=== PATIENT | male | born 1940 | race Two or more races ===

== ENCOUNTER 2019-03-07 17:35 | Inpatient (IN) | payer OTHER ==
[~2019-03-07] VITALS: Ht 160 cm; Wt 78.3 kg
[~2019-03-07 17:35] MED LIST: FLUC100T4 PO; GLIP10TA13 PO; INSU100V11 SQ; LISI1TAB7 PO; METF500T16 PO; METO100T7 PO; NPH,100V5 SQ; POTA20TA4 PO; SIMV40TA3 PO
[2019-03-07] MEDS ORDERED: IV NORMAL SALINE 1000ML BAG 1,000 ML IV SCH (18:30)
--- NOTE | 2019-03-07 18:49 | PHYS DOC ---
Past Medical History Past Medical History: Diabetes-Type II, High Cholesterol, Hypertension Additional Past Medical Histor: BASAL GANGLIA BLEED Past Surgical History: Other Additional Past Surgical Histo: FINGER SX Alcohol Use: None Drug Use: None Adult General Chief Complaint Chief Complaint: Palpitations HPI HPI Patient is a 78-year-old male who presents from home with report of increasing weakness, confusion and just not doing well overall at home. Patient had a stroke the day before Thanksgiving this last year and daughter indicates that normally she is able to transfer patient from wheelchair to bed without difficulty but she states that now patient is requiring much more assistance. Patient does admit to feeling very weak. He denies any specific pain. He denies any headache, chest pain or shortness of breath. He also denies any abdominal pain. Family is not aware if patient has been running a fever or not.[] Review of Systems Review of Systems Constitutional: Denies fever or chills [] Respiratory: Denies cough or shortness of breath [] Cardiovascular: No additional information not addressed in HPI [] GI: Denies abdominal pain, nausea, vomiting or diarrhea [] Musculoskeletal: Denies back pain or joint pain [] Integument: Denies rash or skin lesions [] Neurologic: Denies headache, complains of worsening generalized weakness[] All other systems were reviewed and found to be within normal limits, except as documented in this note. Current Medications Current Medications Current Medications Medications (Trade) Dose Ordered Sig/Rachelle Start Time Stop Time Status Last Admin Dose Admin Sodium Chloride 1,000 ml @ 1,000 mls/hr Q1H 03/07/19 18:30 03/07/19 19:29 DC 03/07/19 19:13 1,000 MLS/HR Allergies Allergies Allergies Coded Allergies Type Severity Reaction Last Updated Verified No Known Drug Allergies 05/03/16 No Physical Exam Physical Exam Constitutional: Well developed, well nourished, no acute distress, non-toxic appearance. [] HENT: Normocephalic, atraumatic, bilateral external ears normal, oropharynx moist, no oral exudates, nose normal. [] Eyes: PERRLA, EOMI, conjunctiva normal, no discharge. [] Neck: Normal range of motion, no tenderness, supple. [] Cardiovascular: Regular rate and rhythm[] Lungs & Thorax: Bilateral breath sounds clear to auscultation [] Abdomen: Bowel sounds normal, soft, no tenderness. [] Skin: Warm, dry, no erythema, no rash. [] Extremities: No tenderness, no cyanosis, no clubbing, ROM intact, no edema. [] Neurologic: Awake and alert, no acute focal deficits noted. [] Current Patient Data Vital Signs Vital Signs Date Time Temp Pulse Resp B/P (MAP) Pulse Ox O2 Delivery O2 Flow Rate FiO2 03/07/19 17:52 98.4 97 14 125/71 (89) 97 Room Air 98.4 Lab Values Laboratory Tests Test 03/07/19 19:13 03/07/19 19:30 White Blood Count 9.5 x10^3/uL (4.0-11.0) Red Blood Count 5.00 x10^6/uL (4.30-5.70) Hemoglobin 13.3 g/dL (13.0-17.5) Hematocrit 40.1 % (39.0-53.0) Mean Corpuscular Volume 80 fL (79-100) Mean Corpuscular Hemoglobin 27 pg (25-35) Mean Corpuscular Hemoglobin Concent 33 g/dL (31-37) Red Cell Distribution Width 15.4 % (11.5-14.5) H Platelet Count 284 x10^3/uL (140-400) Neutrophils (%) (Auto) 62 % (31-73) Lymphocytes (%) (Auto) 26 % (24-48) Monocytes (%) (Auto) 9 % (0-9) Eosinophils (%) (Auto) 2 % (0-3) Basophils (%) (Auto) 1 % (0-3) Neutrophils # (Auto) 5.9 x10^3uL (1.8-7.7) Lymphocytes # (Auto) 2.5 x10^3/uL (1.0-4.8) Monocytes # (Auto) 0.9 x10^3/uL (0.0-1.1) Eosinophils # (Auto) 0.1 x10^3/uL (0.0-0.7) Basophils # (Auto) 0.1 x10^3/uL (0.0-0.2) Sodium Level 139 mmol/L (136-145) Potassium Level 3.7 mmol/L (3.5-5.1) Chloride Level 101 mmol/L (98-107) Carbon Dioxide Level 29 mmol/L (21-32) Anion Gap 9 (6-14) Blood Urea Nitrogen 9 mg/dL (8-26) Creatinine 0.6 mg/dL (0.7-1.3) L Estimated GFR (Cockcroft-Gault) 131.0 BUN/Creatinine Ratio 15 (6-20) Glucose Level 165 mg/dL (70-99) H Calcium Level 9.1 mg/dL (8.5-10.1) Magnesium Level 1.9 mg/dL (1.8-2.4) Total Bilirubin 0.6 mg/dL (0.2-1.0) Aspartate Amino Transferase (AST) 18 U/L (15-37) Alanine Aminotransferase (ALT) 22 U/L (16-63) Alkaline Phosphatase 62 U/L (46-116) Troponin I Quantitative < 0.017 ng/mL (0.000-0.055) Total Protein 7.2 g/dL (6.4-8.2) Albumin 2.9 g/dL (3.4-5.0) L Albumin/Globulin Ratio 0.7 (1.0-1.7) L Lipase 72 U/L (73-393) L Thyroid Stimulating Hormone (TSH) 1.293 uIU/mL (0.358-3.74) Urine Collection Type Unknown Urine Color Yellow Urine Clarity Clear Urine pH 7.0 Urine Specific [place] 1.010 Urine Protein Negative mg/dL (NEG-TRACE) Urine Glucose (UA) Negative mg/dL (NEG) Urine Ketones (Stick) Negative mg/dL (NEG) Urine Blood Negative (NEG) Urine Nitrite Negative (NEG) Urine Bilirubin Negative (NEG) Urine Urobilinogen Dipstick 0.2 mg/dL (0.2 mg/dL) Urine Leukocyte Esterase Small (NEG) Urine RBC 0 /HPF (0-2) Urine WBC 5-10 /HPF (0-4) Urine Squamous Epithelial Cells Few /LPF Urine Bacteria 0 /HPF (0-FEW) Laboratory Tests 03/07/19 19:13 Laboratory Tests 03/07/19 19:13 EKG EKG [] Interpretation Time: EKG demonstrates sinus rhythm with rate of 98. Radiology/Procedures Radiology/Procedures [] Impressions: PROCEDURE: CT HEAD WO CONTRAST CT head without contrast dated 03/07/2019. CLINICAL INDICATION: Weakness. Possible stroke. TECHNIQUE: Contiguous axial imaging of the head was performed from skull base to vertex. No contrast administered. One or more of the following individualized dose reduction techniques were utilized for this examination: 1. Automated exposure control 2. Adjustment of the mA and/or kV according to patient size 3. Use of iterative reconstruction technique FINDINGS: Ventricles and sulci are mildly prominent for age. No midline shift or mass effect. Moderate patchy low density in the deep/subcortical periventricular white matter. No hemorrhage or extra-axial collection. Posterior fossa and brainstem unremarkable. Mild mucosal thickening of the bilateral ethmoid air cells and left maxillary sinus. There is a small mucous retention cyst of the left maxillary sinus. Mastoid air cells are clear. No apparent calvarial abnormality. IMPRESSION: 1. No evidence of acute intracranial hemorrhage or mass. 2. Moderate chronic small vessel ischemic changes and atrophy. 3. Mild sinus disease. Electronically signed by: Mich Fulton MD (03/07/2019 7:34 PM) [facility] Course & Med Decision Making Course & Med Decision Making Pertinent Labs and Imaging studies reviewed. (See chart for details) [] Dragon Disclaimer Dragon Disclaimer This electronic medical record was generated, in whole or in part, using a voice recognition dictation system. Departure Departure Impression: Primary Impression: Confusion Additional Impression: Generalized weakness Disposition: 09 ADMITTED INPATIENT Admitting Physician: Lucy Bradshaw Condition: GOOD Referrals: LUCY BRADSHAW MD (PCP) Problem Qualifiers JACKI VILLARREAL Jr. DO March 07, 2019 18:49
[2019-03-07 19:21] LABS: BASO # 0.1 x10^3/uL (0.0-0.2); BASO % 1 % (0-3); EOS # 0.1 x10^3/uL (0.0-0.7); EOS % 2 % (0-3); HEMATOCRIT 40.1 % (39.0-53.0); HEMOGLOBIN 13.3 g/dL (13.0-17.5); LYMPH # 2.5 x10^3/uL (1.0-4.8); LYMPH % 26 % (24-48); MEAN CORPUSCULAR HEMOGLOBIN 27 pg (25-35); MEAN CORPUSCULAR HGB CONC 33 g/dL (31-37); MEAN CORPUSCULAR VOLUME 80 fL (79-100); MONO # 0.9 x10^3/uL (0.0-1.1); MONO % 9 % (0-9); NEUT # 5.9 x10^3uL (1.8-7.7); NEUT % 62 % (31-73); PLATELET COUNT 284 x10^3/uL (140-400); RED CELL DISTRIBUTION WIDTH 15.4 % (11.5-14.5); WHITE BLOOD COUNT 9.5 x10^3/uL (4.0-11.0)
[2019-03-07 19:33] LABS: CALCIUM 9.1 mg/dL (8.5-10.1); CREATININE 0.6 mg/dL (0.7-1.3); POTASSIUM 3.7 mmol/L (3.5-5.1)
--- NOTE | 2019-03-07 19:37 | RAD ---
CT head without contrast dated 03/07/2019. CLINICAL INDICATION: Weakness. Possible stroke. TECHNIQUE: Contiguous axial imaging of the head was performed from skull base to vertex. No contrast administered. One or more of the following individualized dose reduction techniques were utilized for this examination: 1. Automated exposure control 2. Adjustment of the mA and/or kV according to patient size 3. Use of iterative reconstruction technique FINDINGS: Ventricles and sulci are mildly prominent for age. No midline shift or mass effect. Moderate patchy low density in the deep/subcortical periventricular white matter. No hemorrhage or extra-axial collection. Posterior fossa and brainstem unremarkable. Mild mucosal thickening of the bilateral ethmoid air cells and left maxillary sinus. There is a small mucous retention cyst of the left maxillary sinus. Mastoid air cells are clear. No apparent calvarial abnormality. IMPRESSION: 1. No evidence of acute intracranial hemorrhage or mass. 2. Moderate chronic small vessel ischemic changes and atrophy. 3. Mild sinus disease. Electronically signed by: Mich Fulton MD (03/07/2019 7:34 PM) [facility]
[2019-03-07 19:40] LABS: ALBUMIN 2.9 g/dL (3.4-5.0); ALBUMIN/GLOBULIN RATIO 0.7 (1.0-1.7); MAGNESIUM 1.9 mg/dL (1.8-2.4); TOTAL BILIRUBIN 0.6 mg/dL (0.2-1.0); TOTAL PROTEIN 7.2 g/dL (6.4-8.2)
[2019-03-07 19:40] LABS: BILIRUBIN,URINE NEGATIVE (NEG); CLARITY,URINE CLEAR; COLOR,URINE YELLOW; NITRITE,URINE NEGATIVE (NEG); PROTEIN,URINE NEGATIVE (NEG-TRACE); UROBILINOGEN,URINE 0.2 mg/dL (0.2 mg/dL)
--- NOTE | 2019-03-07 19:41 | RAD ---
Single view chest dated 03/07/2019. Comparison made to 05/10/2018. Clinical indication: Weakness. FINDINGS: Single upright lateral exam performed. Heart and mediastinal contours are stable. Lung volumes are low, limiting evaluation. No consolidation or pleural effusion. No pneumothorax. IMPRESSION: Limited exam. No apparent acute abnormality. Electronically signed by: Mich Fulton MD (03/07/2019 7:38 PM) [facility]
[2019-03-07 19:49] LABS: RBC,URINE 0 /HPF (0-2); SQUAMOUS EPITHELIAL CELL,UR FEW /LPF
[2019-03-07 19:50] LABS: BACTERIA,URINE 0 /HPF (0-FEW)
[2019-03-07] MEDS: IV NORMAL SALINE 1000ML BAG 1,000 ML IV SCH (20:22)
[2019-03-07 22:40] VITALS: BP 126/73
[2019-03-07 23:00] VITALS: BP 136/97
[2019-03-08] MEDS ORDERED: ESCITALOPRAM OX10 MG PO (00:05)
[2019-03-08] MEDS ORDERED: LEVO25TA4 PO (00:05)
[2019-03-08] MEDS ORDERED: DOXA4TAB3 PO (00:05)
[2019-03-08] MEDS ORDERED: ATOR20TA58 PO (00:05)
[2019-03-08 03:00] VITALS: BP 108/66
[2019-03-08] MEDS ORDERED: NPH,100V SQ (04:01)
[2019-03-08 04:02] LABS: BASO # 0.1 x10^3/uL (0.0-0.2); BASO % 1 % (0-3); EOS # 0.2 x10^3/uL (0.0-0.7); EOS % 3 % (0-3); HEMATOCRIT 39.2 % (39.0-53.0); HEMOGLOBIN 12.8 g/dL (13.0-17.5); LYMPH # 2.6 x10^3/uL (1.0-4.8); LYMPH % 31 % (24-48); MEAN CORPUSCULAR HEMOGLOBIN 26 pg (25-35); MEAN CORPUSCULAR HGB CONC 33 g/dL (31-37); MEAN CORPUSCULAR VOLUME 81 fL (79-100); MONO # 0.7 x10^3/uL (0.0-1.1); MONO % 8 % (0-9); NEUT % 58 % (31-73); PLATELET COUNT 282 x10^3/uL (140-400); RED BLOOD COUNT 4.86 x10^6/uL (4.30-5.70); RED CELL DISTRIBUTION WIDTH 15.2 % (11.5-14.5); WHITE BLOOD COUNT 8.7 x10^3/uL (4.0-11.0)
[2019-03-08 04:23] LABS: ALBUMIN 2.7 g/dL (3.4-5.0); ALBUMIN/GLOBULIN RATIO 0.7 (1.0-1.7); CALCIUM 8.9 mg/dL (8.5-10.1); CREATININE 0.5 mg/dL (0.7-1.3); GFR 161.7; POTASSIUM 3.6 mmol/L (3.5-5.1); TOTAL BILIRUBIN 0.6 mg/dL (0.2-1.0); TOTAL PROTEIN 6.8 g/dL (6.4-8.2)
[2019-03-08 07:15] VITALS: BP 141/84
--- NOTE | 2019-03-08 07:25 | EKG ---
[facility] [address] [place] [address] Test Date: 2019-03-07 Test Time: 17:53:54 Pat Name: GARCIA SERRANO Department: Room: Gender: M Machine Whitener: : 1940 Requested By: JACKI VILLARREAL Order Number: [id number] Reading MD: Measurements Intervals [place] Rate: 98 P: 0 HI: 222 QRS: 39 QRSD: 76 T: 50 QT: 332 QTc: 426 Interpretive Statements SINUS RHYTHM PROLONGED HI INTERVAL QRS(T) CONTOUR ABNORMALITY CONSIDER INFERIOR MYOCARDIAL DAMAGE ABNORMAL ECG RI6.01 No previous ECG available for comparison
[2019-03-08] MEDS ORDERED: ACETAMINOPHEN 325 MG TABLET. PO PRN (10:15)
--- NOTE | 2019-03-08 10:20 | NUR ---
Per pt, pt reports feeling weaker than baseline. Pt states he uses roller walker and wheelchair for mobility. Please order PT/OT eval and treat when pt deemed appropriate to further assess functional mobility. Thank you. Addendum: 03/08/19 at 1020 by PHILIP BERRY, PT PT Amended: Links added.
[2019-03-08] MEDS: LEVOTHYROXINE 25 MCG TABLET. PO SCH (10:58)
[2019-03-08] MEDS: CITALOPRAM 20 MG TABLET. PO SCH (10:58)
[2019-03-08] MEDS: IV NORMAL SALINE 1000ML BAG 1,000 ML IV SCH ×2 (10:58→16:22)
[2019-03-08] MEDS ORDERED: INSULIN GLARGINE 300 UNITS/3 ML INSULN.PEN. SQ SCH (11:00)
[2019-03-08 11:09] VITALS: BP 159/83
--- NOTE | 2019-03-08 11:15 | NUR ---
Wound care: Patient seen per wound care consult. There are no open wounds at this time. The left shoulder and the left knee abrasions are both scabbed over. The left dorsal toe is also closed, scab removed when sock taken off, the area is closed. Skin prep applied to scabbed areas for protection. Patient brief changed and coccyx/bilateral buttocks area is reddened with some incontinence associated dermatitis but nothing open at this time. Calazime cream applied. Patient repositioned with minimal assistance. Call light in reach and bed lowered. Spoke with RN regarding POC. Wound care will sign off at this time. Please re consult regarding any changes per wound care.
--- NOTE | 2019-03-08 11:20 | PDOC ---
Provider Note Provider Note Patient seen. History and Physical dictated. See dictation#[id number] LUCY BRADSHAW MD March 08, 2019 11:19
--- NOTE | 2019-03-08 11:35 | HP ---
ADMIT DATE: 03/07/2019 HISTORY OF PRESENT ILLNESS: This 78-year-old male who has a history of uncontrolled diabetes mellitus and dementia, who was recently admitted to [facility] [place] for acute cerebrovascular accident. At that time, he had a PEG tube placed, but after that he started eating. However, for last 2 days, the patient's daughter noted that he has become extremely weak and he cannot even support himself. He cannot sit up in the chair and has weakness of the lower extremities, so she brought him to the office yesterday. I noticed some cardiac arrhythmia on auscultation but EKG did not show any arrhythmia. Because of the change in mental status and also increasing weakness with possibility of another stroke and other issues, the patient was sent to the Emergency Room at [facility]. I had asked the family to go by ambulance, but he came by local transport. In the Emergency Room, The patient's labs showed WBC count of 9.5, hemoglobin 13.3. Sodium 139, potassium 3.7, BUN 9, creatinine 0.6, glucose 165. Urinalysis negative. CT scan of head showed no acute intracranial hemorrhage or mass, moderate chronic small vessel ischemic changes and atrophy and mild sinus disease. A chest x-ray was unremarkable. Urinalysis was negative except for small leukocyte esterase. Because of the change in mental status and increasing weakness, the patient was admitted for further evaluation and management. REVIEW OF SYSTEMS: At present time, the patient is sleeping and I am unable to wake him up and unable to do systems review. Yesterday when he was awake and talking to me, he denied any problems, but he is very confused and unable to get any significant information from him yesterday also. Other systems were reviewed and negative yesterday. PAST MEDICAL HISTORY: Diabetic neuropathy with hyperglycemia, blood sugars have been extremely high for a long, long time, but the last hemoglobin A1c was 7.9 because now he cannot get out of bed to go and find the food that he used to eat continuously. He also has a history of glaucoma, hypertension, internal hemorrhoids, hyperlipidemia, CVA, noncompliance, cerebrovascular disease. PAST SURGICAL HISTORY: The patient had a PEG tube placed recently. SOCIAL HISTORY: No history of smoking, alcoholism or drug abuse. The patient quit drinking in 1983. He lives with the family and has good support. FAMILY HISTORY: Brother has diabetes. Mother has diabetes. ALLERGIES: None known any. MEDICATIONS: Reviewed and reconciled. PHYSICAL EXAMINATION: VITAL SIGNS: Temperature 97.7, pulse 97 per minute, respirations 14 per minute, blood pressure 125/71 mmHg. GENERAL: The patient is sleeping and not in acute distress. EYES: Unable to examine. HEENT: Unable to examine. NECK: Supple. JVP normal. No thyromegaly. LUNGS: Decreased breath sounds at bases. CARDIOVASCULAR: S1, S2 regular. ABDOMEN: Soft, nontender. The patient has a PEG tube in place. Bowel sounds present. No drainage around the PEG tube per staff today. Bowel sounds present. EXTREMITIES: No edema. CENTRAL NERVOUS SYSTEM: Sleeping. Yesterday the exam showed that he was extremely weak. LABORATORY FINDINGS: As noted earlier. IMPRESSION: 1. Acute metabolic encephalopathy. 2. Sudden increase in weakness, possible new CVA; however, CT head is negative. 3. Diabetes mellitus type 2 with neuropathy. 4. Dysphagia with PEG tube, although the patient has been eating well recently. 5. Dementia with behavioral disturbances. 6. Recent cerebrovascular accident. PLAN: Consult Dr. Walker for Neurology evaluation and management, Dr. Zambrano for rehab evaluation and management. I will adjust the insulin. I ordered insulin earlier, but because the patient was n.p.o. I will hold it and then use sliding scale for today. For details, please refer to the orders. Prognosis of this patient is poor due to his multiple medical problems. LUCY BRADSHAW MD DR: MIREYA/ozzie JOB#: [id number] / [id number]
--- NOTE | 2019-03-08 12:26 | NUR ---
THE PT. PRESENTS VERY CONFUSED, AND UPON TRYING TO MEASURE THE PT. HE BECAME COMBATIVE AND AGRESSIVE. THE PT. IS VERY CONFUSED AND WOULD NOT ALLOW THE EEG TAKE OUT WAITRESS
--- NOTE | 2019-03-08 14:05 | PDOC2 ---
NEUROLOGY CONSULT Date of Admission Date of Admission DATE: 03/08/19 TIME: 13:46 Reason for Consult Reason for Consult: IMPRESSION: Confusion. Metabolic encephalopathy. Generalized weakness. UTI. Dm. HTN. HLD. Obesity. Old BG hemorrhage? RECOMMENDATIONS/PLAN: EEG. Lab: see orders. ASA 81 mg daily. Continue Statin HS. Treat medical diseases. MRI if has focalized motor deficits. OT/PT. HISTORY OF THE PRESENT ILLNESS: This is a 78-year-old male patient who was brought to the ER of [facility] with report of increased weakness, confusion and just not doing well overall at home for over 2 days. Patient had a stroke the day before Thanksgiving this last year and daughter indicates that normally she is able to transfer patient from wheelchair to bed without difficulty but she states that now patient is requiring much more assistance. Patient does admit to feeling very weak in all extremities. PAST MEDICAL HISTORY: Diabetic neuropathy with hyperglycemia, last hemoglobin A1c was 7.9. Glaucoma, hypertension, internal hemorrhoids, hyperlipidemia, CVA, noncompliance, cerebrovascular disease. PAST SURGICAL HISTORY: PEG tube placed recently. SOCIAL HISTORY: Denied current smoking, alcoholism or drug abuse. The patient quit drinking in 1983. He lives with the family and has good support. FAMILY HISTORY: Brother has diabetes. Mother has diabetes. ALLERGY: NKDA MEDICATIONS: REVIEW OF SYSTEMS: Constitutional: Obese. Head: No traumatic brain or head injury. Skin: No edema, or rash. Ear: No infection, tinnitus. Eyes: No vision loss or color blindness. Nose: No bleeding or purulent discharges. Hearing: Hearing decrease. Neck: No injury. Cardiac: HTN, HLD. Pulmonary: No COPD. GI: No GI ulcer, GI bleeding. Urinary/genital: UTI. Endocrinologic: Diabetes Mellitus, obesity. Skeletomuscular: Generalized weakness. Neurological: see HP. Psychiatric: Denies drug use/abuse. Otherwise, not [id number] review of systems. PHYSICAL EXAMINATION: General appearance is in subacute distress. HEENT: Normocephalic and nontraumatic. Eyes, nose, ears, and throat are unremarkable. Neck is supple. No lymphadenopathy. No crepitus. Cardiovascular: S1, S2, regular rate and rhythm. Pulmonary: Clear to auscultation bilaterally. Abdomen: Bowel sounds are positive. Extremities: No rash, lesions, or edema. No restriction of range of motion NEUROLOGICAL EXAMINATION: Sleepiness. Not oriented to time, place and person. PERRL. EOMI. CN: no focal findings. Muscle tone: within normal. Muscle strength: 4+ DTR: 1-2 Plantar reflex: Neutral response bilaterally Gait: not examined in bed. Sensory exam: no acute abnormal findings. Not able to access cerebellar signs due tyo not follow command. F-T-N test not performed. Current Medications Current Medications Current Medications Sodium Chloride 1,000 ml @ 1,000 mls/hr Q1H IV Last administered on 03/07/19at 19:13; Start 03/07/19 at 18:30; Stop 03/07/19 at 19:29; Status DC Sodium Chloride 1,000 ml @ 100 mls/hr Q10H IV Last administered on 03/08/19at 10:58; Start 03/07/19 at 20:22; Stop 03/08/19 at 20:21 Atorvastatin Calcium (Lipitor) 20 mg QHS PO ; Start 03/08/19 at 21:00 Doxazosin Mesylate (Cardura) 4 mg DAILYWSUP PO ; Start 03/08/19 at 17:00 Citalopram Hydrobromide (CeleXA) 20 mg DAILY PO Last administered on 03/08/19at 10:58; Start 03/08/19 at 11:00 Levothyroxine Sodium (Synthroid) 25 mcg DAILY06 PO Last administered on 03/08/19at 10:58; Start 03/08/19 at 10:30 Insulin Glargine (Lantus) 30 units DAILY SQ ; Start 03/08/19 at 11:00; Stop 03/08/19 at 11:20; Status DC Insulin Human Lispro (HumaLOG) 0-8 UNITS BIDBFRMEAL SQ ; Start 03/08/19 at 16:30 Acetaminophen (Tylenol) 650 mg PRN Q6HRS PRN PO MILD PAIN / TEMP; Start 03/08/19 at 10:15 Heparin Sodium (Porcine) (Heparin Sodium) 5,000 unit Q12HR SQ ; Start 03/08/19 at 21:00 Active Scripts Active Reported Humulin N (Nph, Human Insulin Isophane) 100 Unit/1 Ml Vial 45 Unit SQ DAILY Doxazosin Mesylate 4 Mg Tablet 4 Mg PO DAILY Escitalopram Oxalate 10 Mg Tablet 10 Mg PO DAILY Atorvastatin Calcium 20 Mg Tablet 20 Mg PO DAILY Levothyroxine Sodium 25 Mcg Tablet 25 Mcg PO DAILYAC Allergies Allergies: Allergies Coded Allergies Type Severity Reaction Last Updated Verified No Known Drug Allergies 05/03/16 No ROS Review of System The patient denies any associated fevers, chills, headache, ear pain, rhinorrhea, sore throat, stiff neck, productive cough, chest pain, shortness of breath, back or flank pain, abdominal pain, nausea, vomiting, diarrhea, constipation, dysuria, rash, numbness, weakness, tingling, incontinence, difficulty ambulating, or diaphoresis. Physical Exam Physical Exam General: Well developed, well nourished, no acute distress, well appearing HEENT: Pupils equally round and reactive to light, EOMI, no discharge, normal conjunctiva Neck: Supple, no nuchal rigidity, no JVD, trachea midline, no tenderness Cardiac: RRR, no murmurs, no gallops, no rubs Chest/Lungs: CTAB, no wheeze, no rhonchi, no crackles Abdomen: soft, non-distended, no guarding, no peritoneal signs, non-tender Back: No tenderness Extremities: no edema, pulses intact, non-tender,capillary refill <3 sec bilateral upper and lower extremities, Neuro: Alert and oriented x 4, no focal deficits, normal speech Vitals Vitals: Vital Signs Date Time Temp Pulse Resp B/P (MAP) Pulse Ox O2 Delivery O2 Flow Rate FiO2 03/08/19 11:09 97.5 68 20 159/83 (108) 94 Room Air 97.5 Labs Labs Laboratory Tests Test 03/07/19 19:13 03/07/19 19:30 03/07/19 21:52 03/08/19 03:20 White Blood Count 9.5 x10^3/uL (4.0-11.0) 8.7 x10^3/uL (4.0-11.0) Red Blood Count 5.00 x10^6/uL (4.30-5.70) 4.86 x10^6/uL (4.30-5.70) Hemoglobin 13.3 g/dL (13.0-17.5) 12.8 g/dL (13.0-17.5) Hematocrit 40.1 % (39.0-53.0) 39.2 % (39.0-53.0) Mean Corpuscular Volume 80 fL (79-100) 81 fL (79-100) Mean Corpuscular Hemoglobin 27 pg (25-35) 26 pg (25-35) Mean Corpuscular Hemoglobin Concent 33 g/dL (31-37) 33 g/dL (31-37) Red Cell Distribution Width 15.4 % (11.5-14.5) 15.2 % (11.5-14.5) Platelet Count 284 x10^3/uL (140-400) 282 x10^3/uL (140-400) Neutrophils (%) (Auto) 62 % (31-73) 58 % (31-73) Lymphocytes (%) (Auto) 26 % (24-48) 31 % (24-48) Monocytes (%) (Auto) 9 % (0-9) 8 % (0-9) Eosinophils (%) (Auto) 2 % (0-3) 3 % (0-3) Basophils (%) (Auto) 1 % (0-3) 1 % (0-3) Neutrophils # (Auto) 5.9 x10^3uL (1.8-7.7) 5.0 x10^3uL (1.8-7.7) Lymphocytes # (Auto) 2.5 x10^3/uL (1.0-4.8) 2.6 x10^3/uL (1.0-4.8) Monocytes # (Auto) 0.9 x10^3/uL (0.0-1.1) 0.7 x10^3/uL (0.0-1.1) Eosinophils # (Auto) 0.1 x10^3/uL (0.0-0.7) 0.2 x10^3/uL (0.0-0.7) Basophils # (Auto) 0.1 x10^3/uL (0.0-0.2) 0.1 x10^3/uL (0.0-0.2) Sodium Level 139 mmol/L (136-145) 143 mmol/L (136-145) Potassium Level 3.7 mmol/L (3.5-5.1) 3.6 mmol/L (3.5-5.1) Chloride Level 101 mmol/L (98-107) 106 mmol/L (98-107) Carbon Dioxide Level 29 mmol/L (21-32) 27 mmol/L (21-32) Anion Gap 9 (6-14) 10 (6-14) Blood Urea Nitrogen 9 mg/dL (8-26) 6 mg/dL (8-26) Creatinine 0.6 mg/dL (0.7-1.3) 0.5 mg/dL (0.7-1.3) Estimated GFR (Cockcroft-Gault) 131.0 161.7 BUN/Creatinine Ratio 15 (6-20) 12 (6-20) Glucose Level 165 mg/dL (70-99) 81 mg/dL (70-99) Calcium Level 9.1 mg/dL (8.5-10.1) 8.9 mg/dL (8.5-10.1) Magnesium Level 1.9 mg/dL (1.8-2.4) Total Bilirubin 0.6 mg/dL (0.2-1.0) 0.6 mg/dL (0.2-1.0) Aspartate Amino Transf (AST/SGOT) 18 U/L (15-37) 15 U/L (15-37) Alanine Aminotransferase (ALT/SGPT) 22 U/L (16-63) 20 U/L (16-63) Alkaline Phosphatase 62 U/L (46-116) 57 U/L (46-116) Troponin I Quantitative < 0.017 ng/mL (0.000-0.055) Total Protein 7.2 g/dL (6.4-8.2) 6.8 g/dL (6.4-8.2) Albumin 2.9 g/dL (3.4-5.0) 2.7 g/dL (3.4-5.0) Albumin/Globulin Ratio 0.7 (1.0-1.7) 0.7 (1.0-1.7) Lipase 72 U/L (73-393) Thyroid Stimulating Hormone (TSH) 1.293 uIU/mL (0.358-3.74) Urine Collection Type Unknown Urine Color Yellow Urine Clarity Clear Urine pH 7.0 Urine Specific Vil[place] 1.010 Urine Protein Negative mg/dL (NEG-TRACE) Urine Glucose (UA) Negative mg/dL (NEG) Urine Ketones (Stick) Negative mg/dL (NEG) Urine Blood Negative (NEG) Urine Nitrite Negative (NEG) Urine Bilirubin Negative (NEG) Urine Urobilinogen Dipstick 0.2 mg/dL (0.2 mg/dL) Urine Leukocyte Esterase Small (NEG) Urine RBC 0 /HPF (0-2) Urine WBC 5-10 /HPF (0-4) Urine Squamous Epithelial Cells Few /LPF Urine Bacteria 0 /HPF (0-FEW) Glucose (Fingerstick) 97 mg/dL (70-99) Test 03/08/19 07:39 03/08/19 10:54 Glucose (Fingerstick) 105 mg/dL (70-99) 94 mg/dL (70-99) Laboratory Tests Test 03/07/19 19:13 03/07/19 19:30 03/07/19 21:52 03/08/19 03:20 White Blood Count 9.5 x10^3/uL (4.0-11.0) 8.7 x10^3/uL (4.0-11.0) Red Blood Count 5.00 x10^6/uL (4.30-5.70) 4.86 x10^6/uL (4.30-5.70) Hemoglobin 13.3 g/dL (13.0-17.5) 12.8 g/dL (13.0-17.5) Hematocrit 40.1 % (39.0-53.0) 39.2 % (39.0-53.0) Mean Corpuscular Volume 80 fL (79-100) 81 fL (79-100) Mean Corpuscular Hemoglobin 27 pg (25-35) 26 pg (25-35) Mean Corpuscular Hemoglobin Concent 33 g/dL (31-37) 33 g/dL (31-37) Red Cell Distribution Width 15.4 % (11.5-14.5) 15.2 % (11.5-14.5) Platelet Count 284 x10^3/uL (140-400) 282 x10^3/uL (140-400) Neutrophils (%) (Auto) 62 % (31-73) 58 % (31-73) Lymphocytes (%) (Auto) 26 % (24-48) 31 % (24-48) Monocytes (%) (Auto) 9 % (0-9) 8 % (0-9) Eosinophils (%) (Auto) 2 % (0-3) 3 % (0-3) Basophils (%) (Auto) 1 % (0-3) 1 % (0-3) Neutrophils # (Auto) 5.9 x10^3uL (1.8-7.7) 5.0 x10^3uL (1.8-7.7) Lymphocytes # (Auto) 2.5 x10^3/uL (1.0-4.8) 2.6 x10^3/uL (1.0-4.8) Monocytes # (Auto) 0.9 x10^3/uL (0.0-1.1) 0.7 x10^3/uL (0.0-1.1) Eosinophils # (Auto) 0.1 x10^3/uL (0.0-0.7) 0.2 x10^3/uL (0.0-0.7) Basophils # (Auto) 0.1 x10^3/uL (0.0-0.2) 0.1 x10^3/uL (0.0-0.2) Sodium Level 139 mmol/L (136-145) 143 mmol/L (136-145) Potassium Level 3.7 mmol/L (3.5-5.1) 3.6 mmol/L (3.5-5.1) Chloride Level 101 mmol/L (98-107) 106 mmol/L (98-107) Carbon Dioxide Level 29 mmol/L (21-32) 27 mmol/L (21-32) Anion Gap 9 (6-14) 10 (6-14) Blood Urea Nitrogen 9 mg/dL (8-26) 6 mg/dL (8-26) Creatinine 0.6 mg/dL (0.7-1.3) 0.5 mg/dL (0.7-1.3) Estimated GFR (Cockcroft-Gault) 131.0 161.7 BUN/Creatinine Ratio 15 (6-20) 12 (6-20) Glucose Level 165 mg/dL (70-99) 81 mg/dL (70-99) Calcium Level 9.1 mg/dL (8.5-10.1) 8.9 mg/dL (8.5-10.1) Magnesium Level 1.9 mg/dL (1.8-2.4) Total Bilirubin 0.6 mg/dL (0.2-1.0) 0.6 mg/dL (0.2-1.0) Aspartate Amino Transf (AST/SGOT) 18 U/L (15-37) 15 U/L (15-37) Alanine Aminotransferase (ALT/SGPT) 22 U/L (16-63) 20 U/L (16-63) Alkaline Phosphatase 62 U/L (46-116) 57 U/L (46-116) Troponin I Quantitative < 0.017 ng/mL (0.000-0.055) Total Protein 7.2 g/dL (6.4-8.2) 6.8 g/dL (6.4-8.2) Albumin 2.9 g/dL (3.4-5.0) 2.7 g/dL (3.4-5.0) Albumin/Globulin Ratio 0.7 (1.0-1.7) 0.7 (1.0-1.7) Lipase 72 U/L (73-393) Thyroid Stimulating Hormone (TSH) 1.293 uIU/mL (0.358-3.74) Urine Collection Type Unknown Urine Color Yellow Urine Clarity Clear Urine pH 7.0 Urine Specific Vil[place] 1.010 Urine Protein Negative mg/dL (NEG-TRACE) Urine Glucose (UA) Negative mg/dL (NEG) Urine Ketones (Stick) Negative mg/dL (NEG) Urine Blood Negative (NEG) Urine Nitrite Negative (NEG) Urine Bilirubin Negative (NEG) Urine Urobilinogen Dipstick 0.2 mg/dL (0.2 mg/dL) Urine Leukocyte Esterase Small (NEG) Urine RBC 0 /HPF (0-2) Urine WBC 5-10 /HPF (0-4) Urine Squamous Epithelial Cells Few /LPF Urine Bacteria 0 /HPF (0-FEW) Glucose (Fingerstick) 97 mg/dL (70-99) Test 03/08/19 07:39 03/08/19 10:54 Glucose (Fingerstick) 105 mg/dL (70-99) 94 mg/dL (70-99) HEAVEN QUINTANA MD March 08, 2019 14:05
[2019-03-08 14:57] VITALS: BP 148/84
--- NOTE | 2019-03-08 16:22 | NUR ---
SW consulted for SNF screen. Chart reviewed and discussed with RN. Pt lives at home and PT/OT is pending. SW will await for PT/OT recommendation to assess skilled needs.
[2019-03-08] MEDS: INSULIN LISPRO 300 UNITS/3 ML INSULN.PEN. SQ SCH (16:30)
[2019-03-08] MEDS ORDERED: DOXAZOSIN MESYLATE 4 MG TABLET. PO SCH (17:00)
[2019-03-08] MEDS: ASPIRIN CHEWABLE 81 MG TABLET. PO SCH (18:24)
[2019-03-08 19:48] VITALS: BP 115/63
--- NOTE | 2019-03-08 20:22 | NUR ---
Daughter here to visit - requested that if pt discharged tomorrow that assistance needed to get pt home or that pt would have to be here until she got off work at 1999. RN reassured daughter that SW would be notified if pt to be d/c'ed to assist with getting pt home. Daughter interactive with pt. Will continue to monitor pt status.
[2019-03-08] MEDS ORDERED: ATORVASTATIN CALCIUM 20 MG TABLET PO SCH (21:00)
[2019-03-08] MEDS: HEPARIN for SUB-Q USE 5,000 UNIT/ML VIAL. SQ SCH (22:24)
[2019-03-08 23:55] VITALS: BP 145/73
[2019-03-09 03:30] VITALS: BP 140/78
[2019-03-09 04:42] LABS: BASO # 0.1 x10^3/uL (0.0-0.2); BASO % 1 % (0-3); EOS # 0.4 x10^3/uL (0.0-0.7); EOS % 4 % (0-3); HEMATOCRIT 37.7 % (39.0-53.0); HEMOGLOBIN 12.1 g/dL (13.0-17.5); LYMPH # 2.8 x10^3/uL (1.0-4.8); LYMPH % 30 % (24-48); MEAN CORPUSCULAR HEMOGLOBIN 26 pg (25-35); MEAN CORPUSCULAR HGB CONC 32 g/dL (31-37); MEAN CORPUSCULAR VOLUME 81 fL (79-100); MONO # 0.7 x10^3/uL (0.0-1.1); MONO % 8 % (0-9); NEUT # 5.4 x10^3uL (1.8-7.7); NEUT % 58 % (31-73); PLATELET COUNT 278 x10^3/uL (140-400); RED BLOOD COUNT 4.67 x10^6/uL (4.30-5.70); RED CELL DISTRIBUTION WIDTH 15.4 % (11.5-14.5); WHITE BLOOD COUNT 9.3 x10^3/uL (4.0-11.0)
[2019-03-09 05:03] LABS: CALCIUM 8.9 mg/dL (8.5-10.1); CREATININE 0.6 mg/dL (0.7-1.3); POTASSIUM 3.7 mmol/L (3.5-5.1)
[2019-03-09] MEDS: LEVOTHYROXINE 25 MCG TABLET. PO SCH (06:14)
--- NOTE | 2019-03-09 06:56 | CONS ---
DATE OF CONSULTATION: 03/08/2019 ATTENDING PHYSICIAN: Dr. Yuriy Mujica. The patient was seen at the request of Dr. Mujica for rehab evaluation. HISTORY OF PRESENT ILLNESS: This is a 78-year-old right-handed male with known uncontrolled diabetes mellitus and dementia, admitted to [facility] with diagnosis of acute cerebrovascular accident and he had PEG tube placed, but after that he started eating; however, in the last 2 days, he had some difficulty being extremely weak and cannot even support himself. He cannot sit up in the chair and had weakness in his lower extremities. He was seen by Dr. Mujica in his office. He noted him some cardiac arrhythmia on auscultation but EKG did not show any arrhythmia. The patient with mental status change and increased weakness, admitted for further evaluation and treatment. CT scan of the brain failed to reveal any acute abnormality. It revealed moderate chronic small vessel ischemic changes and atrophy, mild sinus disease. The patient with known diabetic peripheral neuropathy, hyperglycemia, diabetes mellitus, not under good control with A1c being around 7.9. Also, history of glaucoma, hypertension, internal hemorrhoids, hyperlipidemia, noncompliance. The patient lives with his family. He quit drinking in 1983. FAMILY HISTORY: Diabetes mellitus with his brother and mother. The patient had stairs to climb at home. PHYSICAL EXAMINATION: The patient on physical examination today revealed an elderly male. He is awake, oriented to place and person, follows commands appropriately, moves all 4 extremities voluntarily where he had 5/5 grade muscle strength and deep tendon reflexes are decreased overall with absent knee and ankle jerks and he had equal perception of touch and pinprick sensation bilaterally. He had mild incoordination using his left upper extremity and also incoordination using both lower extremities to some extent. He is independent with bed mobility and transfers, though he requires some help in getting up from a low chair. He walked with somewhat wide-based and almost like a steppage kind of gait using a roller walker trying to walk too fast. He gets tired easily. No obvious visual field cut or facial asymmetry noted. No difficulty with his communication. ASSESSMENT: An elderly male with diabetic peripheral neuropathy with recent onset cerebrovascular accident with mild left upper extremity weakness; ataxia; diabetes mellitus, under not good control; hyperlipidemia; hypertension; glaucoma. RECOMMENDATIONS: Agree with the plan for physical therapy, occupational therapy and speech pathology to help with his deficits. Hopefully, home with home health followup when medically stable. Dr. Mujica, I appreciate asking me to participate in the care of this interesting patient. I will be glad to follow him with you as needed for the rehabilitation. MARIAN ROJAS MD DR: SYBIL/ozzie JOB#: [id number] / [id number]
[2019-03-09 07:00] VITALS: BP 153/81
[2019-03-09] MEDS: CITALOPRAM 20 MG TABLET. PO SCH (09:23)
[2019-03-09] MEDS: ASPIRIN CHEWABLE 81 MG TABLET. PO SCH (09:23)
--- NOTE | 2019-03-09 09:30 | PDOC ---
PROGRESS NOTES Subjective Subjective No new complaints. Objective Objective Vital Signs Date Time Temp Pulse Resp B/P (MAP) Pulse Ox O2 Delivery O2 Flow Rate FiO2 03/09/19 07:00 98.2 76 17 153/81 (105) 77 Room Air 98.2 Intake and Output 03/09/19 07:00 Intake Total 240 ml Balance 240 ml Intake Oral 240 ml # Voids 4 Physical Exam Physical Exam H eis supine in bed and comfortable and he is getting up with supervision and he gets tired easily and balance problems persists. Assessment Assessment Problems Medical Problems: (1) Confusion Status: Acute (2) Generalized weakness Status: Acute Plan Plan of Care To get him up as tolerated and to home with home health or SNF when medically stable. Comment Review of Relevant I have reviewed the following items cory (where applicable) has been applied. Labs Laboratory Tests Test 03/07/19 19:13 03/07/19 19:30 03/07/19 21:52 03/08/19 03:20 White Blood Count 9.5 x10^3/uL (4.0-11.0) 8.7 x10^3/uL (4.0-11.0) Red Blood Count 5.00 x10^6/uL (4.30-5.70) 4.86 x10^6/uL (4.30-5.70) Hemoglobin 13.3 g/dL (13.0-17.5) 12.8 g/dL (13.0-17.5) Hematocrit 40.1 % (39.0-53.0) 39.2 % (39.0-53.0) Mean Corpuscular Volume 80 fL (79-100) 81 fL (79-100) Mean Corpuscular Hemoglobin 27 pg (25-35) 26 pg (25-35) Mean Corpuscular Hemoglobin Concent 33 g/dL (31-37) 33 g/dL (31-37) Red Cell Distribution Width 15.4 % (11.5-14.5) 15.2 % (11.5-14.5) Platelet Count 284 x10^3/uL (140-400) 282 x10^3/uL (140-400) Neutrophils (%) (Auto) 62 % (31-73) 58 % (31-73) Lymphocytes (%) (Auto) 26 % (24-48) 31 % (24-48) Monocytes (%) (Auto) 9 % (0-9) 8 % (0-9) Eosinophils (%) (Auto) 2 % (0-3) 3 % (0-3) Basophils (%) (Auto) 1 % (0-3) 1 % (0-3) Neutrophils # (Auto) 5.9 x10^3uL (1.8-7.7) 5.0 x10^3uL (1.8-7.7) Lymphocytes # (Auto) 2.5 x10^3/uL (1.0-4.8) 2.6 x10^3/uL (1.0-4.8) Monocytes # (Auto) 0.9 x10^3/uL (0.0-1.1) 0.7 x10^3/uL (0.0-1.1) Eosinophils # (Auto) 0.1 x10^3/uL (0.0-0.7) 0.2 x10^3/uL (0.0-0.7) Basophils # (Auto) 0.1 x10^3/uL (0.0-0.2) 0.1 x10^3/uL (0.0-0.2) Sodium Level 139 mmol/L (136-145) 143 mmol/L (136-145) Potassium Level 3.7 mmol/L (3.5-5.1) 3.6 mmol/L (3.5-5.1) Chloride Level 101 mmol/L (98-107) 106 mmol/L (98-107) Carbon Dioxide Level 29 mmol/L (21-32) 27 mmol/L (21-32) Anion Gap 9 (6-14) 10 (6-14) Blood Urea Nitrogen 9 mg/dL (8-26) 6 mg/dL (8-26) Creatinine 0.6 mg/dL (0.7-1.3) 0.5 mg/dL (0.7-1.3) Estimated GFR (Cockcroft-Gault) 131.0 161.7 BUN/Creatinine Ratio 15 (6-20) 12 (6-20) Glucose Level 165 mg/dL (70-99) 81 mg/dL (70-99) Calcium Level 9.1 mg/dL (8.5-10.1) 8.9 mg/dL (8.5-10.1) Magnesium Level 1.9 mg/dL (1.8-2.4) Total Bilirubin 0.6 mg/dL (0.2-1.0) 0.6 mg/dL (0.2-1.0) Aspartate Amino Transf (AST/SGOT) 18 U/L (15-37) 15 U/L (15-37) Alanine Aminotransferase (ALT/SGPT) 22 U/L (16-63) 20 U/L (16-63) Alkaline Phosphatase 62 U/L (46-116) 57 U/L (46-116) Troponin I Quantitative < 0.017 ng/mL (0.000-0.055) Total Protein 7.2 g/dL (6.4-8.2) 6.8 g/dL (6.4-8.2) Albumin 2.9 g/dL (3.4-5.0) 2.7 g/dL (3.4-5.0) Albumin/Globulin Ratio 0.7 (1.0-1.7) 0.7 (1.0-1.7) Lipase 72 U/L (73-393) Thyroid Stimulating Hormone (TSH) 1.293 uIU/mL (0.358-3.74) Urine Collection Type Unknown Urine Color Yellow Urine Clarity Clear Urine pH 7.0 Urine Specific [place] 1.010 Urine Protein Negative mg/dL (NEG-TRACE) Urine Glucose (UA) Negative mg/dL (NEG) Urine Ketones (Stick) Negative mg/dL (NEG) Urine Blood Negative (NEG) Urine Nitrite Negative (NEG) Urine Bilirubin Negative (NEG) Urine Urobilinogen Dipstick 0.2 mg/dL (0.2 mg/dL) Urine Leukocyte Esterase Small (NEG) Urine RBC 0 /HPF (0-2) Urine WBC 5-10 /HPF (0-4) Urine Squamous Epithelial Cells Few /LPF Urine Bacteria 0 /HPF (0-FEW) Glucose (Fingerstick) 97 mg/dL (70-99) Test 03/08/19 07:39 03/08/19 10:54 03/08/19 16:49 03/08/19 20:19 Glucose (Fingerstick) 105 mg/dL (70-99) 94 mg/dL (70-99) 131 mg/dL (70-99) 235 mg/dL (70-99) Test 03/09/19 04:15 03/09/19 07:29 White Blood Count 9.3 x10^3/uL (4.0-11.0) Red Blood Count 4.67 x10^6/uL (4.30-5.70) Hemoglobin 12.1 g/dL (13.0-17.5) Hematocrit 37.7 % (39.0-53.0) Mean Corpuscular Volume 81 fL (79-100) Mean Corpuscular Hemoglobin 26 pg (25-35) Mean Corpuscular Hemoglobin Concent 32 g/dL (31-37) Red Cell Distribution Width 15.4 % (11.5-14.5) Platelet Count 278 x10^3/uL (140-400) Neutrophils (%) (Auto) 58 % (31-73) Lymphocytes (%) (Auto) 30 % (24-48) Monocytes (%) (Auto) 8 % (0-9) Eosinophils (%) (Auto) 4 % (0-3) Basophils (%) (Auto) 1 % (0-3) Neutrophils # (Auto) 5.4 x10^3uL (1.8-7.7) Lymphocytes # (Auto) 2.8 x10^3/uL (1.0-4.8) Monocytes # (Auto) 0.7 x10^3/uL (0.0-1.1) Eosinophils # (Auto) 0.4 x10^3/uL (0.0-0.7) Basophils # (Auto) 0.1 x10^3/uL (0.0-0.2) Sodium Level 142 mmol/L (136-145) Potassium Level 3.7 mmol/L (3.5-5.1) Chloride Level 105 mmol/L (98-107) Carbon Dioxide Level 27 mmol/L (21-32) Anion Gap 10 (6-14) Blood Urea Nitrogen 12 mg/dL (8-26) Creatinine 0.6 mg/dL (0.7-1.3) Estimated GFR (Cockcroft-Gault) 131.0 Glucose Level 159 mg/dL (70-99) Calcium Level 8.9 mg/dL (8.5-10.1) Glucose (Fingerstick) 152 mg/dL (70-99) Laboratory Tests Test 03/08/19 10:54 03/08/19 16:49 03/08/19 20:19 03/09/19 04:15 Glucose (Fingerstick) 94 mg/dL (70-99) 131 mg/dL (70-99) 235 mg/dL (70-99) White Blood Count 9.3 x10^3/uL (4.0-11.0) Red Blood Count 4.67 x10^6/uL (4.30-5.70) Hemoglobin 12.1 g/dL (13.0-17.5) Hematocrit 37.7 % (39.0-53.0) Mean Corpuscular Volume 81 fL (79-100) Mean Corpuscular Hemoglobin 26 pg (25-35) Mean Corpuscular Hemoglobin Concent 32 g/dL (31-37) Red Cell Distribution Width 15.4 % (11.5-14.5) Platelet Count 278 x10^3/uL (140-400) Neutrophils (%) (Auto) 58 % (31-73) Lymphocytes (%) (Auto) 30 % (24-48) Monocytes (%) (Auto) 8 % (0-9) Eosinophils (%) (Auto) 4 % (0-3) Basophils (%) (Auto) 1 % (0-3) Neutrophils # (Auto) 5.4 x10^3uL (1.8-7.7) Lymphocytes # (Auto) 2.8 x10^3/uL (1.0-4.8) Monocytes # (Auto) 0.7 x10^3/uL (0.0-1.1) Eosinophils # (Auto) 0.4 x10^3/uL (0.0-0.7) Basophils # (Auto) 0.1 x10^3/uL (0.0-0.2) Sodium Level 142 mmol/L (136-145) Potassium Level 3.7 mmol/L (3.5-5.1) Chloride Level 105 mmol/L (98-107) Carbon Dioxide Level 27 mmol/L (21-32) Anion Gap 10 (6-14) Blood Urea Nitrogen 12 mg/dL (8-26) Creatinine 0.6 mg/dL (0.7-1.3) Estimated GFR (Cockcroft-Gault) 131.0 Glucose Level 159 mg/dL (70-99) Calcium Level 8.9 mg/dL (8.5-10.1) Test 03/09/19 07:29 Glucose (Fingerstick) 152 mg/dL (70-99) Medications Current Medications Sodium Chloride 1,000 ml @ 1,000 mls/hr Q1H IV Last administered on 03/07/19at 19:13; Start 03/07/19 at 18:30; Stop 03/07/19 at 19:29; Status DC Sodium Chloride 1,000 ml @ 100 mls/hr Q10H IV Last administered on 03/08/19at 10:58; Start 03/07/19 at 20:22; Stop 03/08/19 at 20:21; Status DC Atorvastatin Calcium (Lipitor) 20 mg QHS PO Last administered on 03/08/19at 22:23; Start 03/08/19 at 21:00 Doxazosin Mesylate (Cardura) 4 mg DAILYWSUP PO Last administered on 03/08/19at 18:24; Start 03/08/19 at 17:00 Citalopram Hydrobromide (CeleXA) 20 mg DAILY PO Last administered on 03/08/19at 10:58; Start 03/08/19 at 11:00 Levothyroxine Sodium (Synthroid) 25 mcg DAILY06 PO Last administered on 03/09/19at 06:14; Start 03/08/19 at 10:30 Insulin Glargine (Lantus) 30 units DAILY SQ ; Start 03/08/19 at 11:00; Stop 03/08/19 at 11:20; Status DC Insulin Human Lispro (HumaLOG) 0-8 UNITS BIDBFRMEAL SQ ; Start 03/08/19 at 16:30 Acetaminophen (Tylenol) 650 mg PRN Q6HRS PRN PO MILD PAIN / TEMP; Start 03/08/19 at 10:15 Heparin Sodium (Porcine) (Heparin Sodium) 5,000 unit Q12HR SQ Last administered on 03/08/19at 22:24; Start 03/08/19 at 21:00 Aspirin (Children'S Aspirin) 81 mg DAILYWBKFT PO Last administered on 03/08/19at 18:24; Start 03/08/19 at 15:00 Active Scripts Active Reported Humulin N (Nph, Human Insulin Isophane) 100 Unit/1 Ml Vial 45 Unit SQ DAILY Doxazosin Mesylate 4 Mg Tablet 4 Mg PO DAILY Escitalopram Oxalate 10 Mg Tablet 10 Mg PO DAILY Atorvastatin Calcium 20 Mg Tablet 20 Mg PO DAILY Levothyroxine Sodium 25 Mcg Tablet 25 Mcg PO DAILYAC Vitals/I & O Vital Sign - Last 24 Hours 03/08/19 03/08/19 03/08/19 03/08/19 11:09 14:57 18:24 19:15 Temp 97.5 97.1 97.5 97.1 Pulse 68 71 71 Resp 20 18 B/P (MAP) 159/83 (108) 148/84 (105) 148/84 Pulse Ox 94 95 O2 Delivery Room Air Room Air Room Air 03/08/19 03/08/19 03/09/19 03/09/19 19:48 23:55 03:30 07:00 Temp 98.1 98.2 97.7 98.2 98.1 98.2 97.7 98.2 Pulse 75 71 75 76 Resp 18 16 16 17 B/P (MAP) 115/63 (80) 145/73 (97) 140/78 (98) 153/81 (105) Pulse Ox 95 96 95 77 O2 Delivery Room Air Room Air Room Air Room Air Intake and Output 03/08/19 03/08/19 03/09/19 15:00 23:00 07:00 Intake Total 0 ml 240 ml Balance 0 ml 240 ml Nutrition Consultation Dietary Evaluation: Recommendations by RD: Increase Calorie Intake, Protein supplementation Comments: offer puddings, magic cup, encourage po intake Expected Outcomes/Goals: to meet > 75% est nutr needs Interpretation of weight loss: >10% in 6 months Malnutrition Findings: Food and Nutrition Intake (Mod: <75% est energy req 7days Weight Status: Obese MARIAN ROJAS MD March 09, 2019 09:30
[2019-03-09] MEDS: HEPARIN for SUB-Q USE 5,000 UNIT/ML VIAL. SQ SCH (09:33)
[2019-03-09] MEDS: INSULIN LISPRO 300 UNITS/3 ML INSULN.PEN. SQ SCH ×2 (09:34→16:21)
[2019-03-09 11:00] VITALS: BP 125/67
[2019-03-09] MEDS ORDERED: ASPI-630 PO (11:14)
--- NOTE | 2019-03-09 11:16 | SNU/HH DC ---
DISCHARGE WITH HOME HEALTH DISCHARGE INFORMATION: Final Diagnosis: Problems Medical Problems: (1) Confusion Status: Acute (2) Generalized weakness Status: Acute Condition on Discharge: Stable CODE STATUS: Code Status: DNR/DNI HOME HEALTH: Face to Face: I certify this patient is under my care and that I, or a nurse practitioner or physician's assistant plant manager working with me, had a face to face encounter that meets the physician face to face encounter requirements with this patient on February,. Medical Complications: Dementia RN For Eval/Treatment: Yes Physical Therapy For: Evalulation/Treatment Occupational Therapy For: Evaluation/Treatment Speech Language Pathology For: Evaluation/Treatment Pt Meets Homebound Status: Unsteady balance w/ amb, POST DISCHARGE ORDERS: Activity Instructions for Disc: Activity as tolerated (walk with supervision and walker only) DIET AFTER DISCHARGE: ADA CHECKS AFTER DISCHARGE: Checks after discharge: Check blood sugar, ac/hs FOLLOW-UP: PCP to follow Home Health: Yes Follow up with: Dr. LUCY Bradshaw in 5 days CERTIFICATION STATEMENT: Certification Statement: Certification Statement: Based on the above finding, I certify that this patient is confined to the home and needs intermittent penitentiary care, physical therapy and/or speech therapy, or continues to need occupational therapy.~ This patient is under my care, and I have initiated the establishment of the plan of care.~ This patient will be followed by myself or a community physician who will periodically review the plan of care. Home Meds Reported Medications Nph, Human Insulin Isophane (HUMULIN N) 100 Unit/1 Ml Vial, 45 UNIT SQ DAILY for dm, EACH 03/08/19 Doxazosin Mesylate (DOXAZOSIN MESYLATE) 4 Mg Tablet, 4 MG PO DAILY for HTN, TAB 03/08/19 Escitalopram Oxalate (ESCITALOPRAM OXALATE) 10 Mg Tablet, 10 MG PO DAILY for ANTI-DEPRESSANT, #30 TAB 0 Refills 03/08/19 Atorvastatin Calcium (ATORVASTATIN CALCIUM) 20 Mg Tablet, 20 MG PO DAILY for FOR CHOLESTEROL, #30 TAB 0 Refills 03/08/19 Levothyroxine Sodium (LEVOTHYROXINE SODIUM) 25 Mcg Tablet, 25 MCG PO DAILYAC for THYROID SUPPLEMENT, #30 TAB 0 Refills 03/08/19 Discontinued Reported Medications Fluconazole (FLUCONAZOLE) 100 Mg Tablet, 1 TAB PO DAILY, #10 TAB 05/12/18 Simvastatin (SIMVASTATIN) 40 Mg Tablet, 40 MG PO DAILY for FOR CHOLESTEROL, #30 TAB 0 Refills 05/10/18 Lisinopril/Hydrochlorothiazide (LISINOPRIL-HCTZ 20-25 MG TAB) 1 Each Tablet, 1 TAB PO DAILY, #30 TAB 5 Refills 05/10/18 Metoprolol Tartrate (METOPROLOL TARTRATE) 100 Mg Tablet, 1.5 TAB PO BID, #60 TAB 5 Refills 05/10/18 Glipizide (GLIPIZIDE) 10 Mg Tablet, 1 TAB PO BID, #60 TAB 5 Refills 05/10/18 Metformin Hcl (METFORMIN HCL) 500 Mg Tablet, 500 MG PO BIDWMEALS for ANTI- DIABETIC, TAB 0 Refills 05/10/18 LUCY BRADSHAW MD March 09, 2019 11:16
--- NOTE | 2019-03-09 11:23 | PDOC3 ---
IM DISCHARGE SUMMARY Date of Admission Date of Admission Date of Admission: March 07, 2019 at 20:24 Date of Discharge Date of Discharge March 09, 2019 Primary Diagnosis Primary Diagnosis 1. Acute metabolic encephalopathy. 2. Sudden increase in weakness, possible new CVA; however, CT head is negative. 3. Diabetes mellitus type 2 with neuropathy. 4. Dysphagia with PEG tube, although the patient has been eating well recently. 5. Dementia with behavioral disturbances. 6. Recent cerebrovascular accident. Consults Consults Narciso Zambrano MD, Dr. walker Labs Labs Laboratory Tests Test 03/07/19 19:13 03/07/19 19:30 03/07/19 21:52 03/08/19 03:20 White Blood Count 9.5 x10^3/uL (4.0-11.0) 8.7 x10^3/uL (4.0-11.0) Red Blood Count 5.00 x10^6/uL (4.30-5.70) 4.86 x10^6/uL (4.30-5.70) Hemoglobin 13.3 g/dL (13.0-17.5) 12.8 g/dL (13.0-17.5) Hematocrit 40.1 % (39.0-53.0) 39.2 % (39.0-53.0) Mean Corpuscular Volume 80 fL (79-100) 81 fL (79-100) Mean Corpuscular Hemoglobin 27 pg (25-35) 26 pg (25-35) Mean Corpuscular Hemoglobin Concent 33 g/dL (31-37) 33 g/dL (31-37) Red Cell Distribution Width 15.4 % (11.5-14.5) 15.2 % (11.5-14.5) Platelet Count 284 x10^3/uL (140-400) 282 x10^3/uL (140-400) Neutrophils (%) (Auto) 62 % (31-73) 58 % (31-73) Lymphocytes (%) (Auto) 26 % (24-48) 31 % (24-48) Monocytes (%) (Auto) 9 % (0-9) 8 % (0-9) Eosinophils (%) (Auto) 2 % (0-3) 3 % (0-3) Basophils (%) (Auto) 1 % (0-3) 1 % (0-3) Neutrophils # (Auto) 5.9 x10^3uL (1.8-7.7) 5.0 x10^3uL (1.8-7.7) Lymphocytes # (Auto) 2.5 x10^3/uL (1.0-4.8) 2.6 x10^3/uL (1.0-4.8) Monocytes # (Auto) 0.9 x10^3/uL (0.0-1.1) 0.7 x10^3/uL (0.0-1.1) Eosinophils # (Auto) 0.1 x10^3/uL (0.0-0.7) 0.2 x10^3/uL (0.0-0.7) Basophils # (Auto) 0.1 x10^3/uL (0.0-0.2) 0.1 x10^3/uL (0.0-0.2) Sodium Level 139 mmol/L (136-145) 143 mmol/L (136-145) Potassium Level 3.7 mmol/L (3.5-5.1) 3.6 mmol/L (3.5-5.1) Chloride Level 101 mmol/L (98-107) 106 mmol/L (98-107) Carbon Dioxide Level 29 mmol/L (21-32) 27 mmol/L (21-32) Anion Gap 9 (6-14) 10 (6-14) Blood Urea Nitrogen 9 mg/dL (8-26) 6 mg/dL (8-26) Creatinine 0.6 mg/dL (0.7-1.3) 0.5 mg/dL (0.7-1.3) Estimated GFR (Cockcroft-Gault) 131.0 161.7 BUN/Creatinine Ratio 15 (6-20) 12 (6-20) Glucose Level 165 mg/dL (70-99) 81 mg/dL (70-99) Calcium Level 9.1 mg/dL (8.5-10.1) 8.9 mg/dL (8.5-10.1) Magnesium Level 1.9 mg/dL (1.8-2.4) Total Bilirubin 0.6 mg/dL (0.2-1.0) 0.6 mg/dL (0.2-1.0) Aspartate Amino Transf (AST/SGOT) 18 U/L (15-37) 15 U/L (15-37) Alanine Aminotransferase (ALT/SGPT) 22 U/L (16-63) 20 U/L (16-63) Alkaline Phosphatase 62 U/L (46-116) 57 U/L (46-116) Troponin I Quantitative < 0.017 ng/mL (0.000-0.055) Total Protein 7.2 g/dL (6.4-8.2) 6.8 g/dL (6.4-8.2) Albumin 2.9 g/dL (3.4-5.0) 2.7 g/dL (3.4-5.0) Albumin/Globulin Ratio 0.7 (1.0-1.7) 0.7 (1.0-1.7) Lipase 72 U/L (73-393) Thyroid Stimulating Hormone (TSH) 1.293 uIU/mL (0.358-3.74) Urine Collection Type Unknown Urine Color Yellow Urine Clarity Clear Urine pH 7.0 Urine Specific [place] 1.010 Urine Protein Negative mg/dL (NEG-TRACE) Urine Glucose (UA) Negative mg/dL (NEG) Urine Ketones (Stick) Negative mg/dL (NEG) Urine Blood Negative (NEG) Urine Nitrite Negative (NEG) Urine Bilirubin Negative (NEG) Urine Urobilinogen Dipstick 0.2 mg/dL (0.2 mg/dL) Urine Leukocyte Esterase Small (NEG) Urine RBC 0 /HPF (0-2) Urine WBC 5-10 /HPF (0-4) Urine Squamous Epithelial Cells Few /LPF Urine Bacteria 0 /HPF (0-FEW) Glucose (Fingerstick) 97 mg/dL (70-99) Test 03/08/19 07:39 03/08/19 10:54 03/08/19 16:49 03/08/19 20:19 Glucose (Fingerstick) 105 mg/dL (70-99) 94 mg/dL (70-99) 131 mg/dL (70-99) 235 mg/dL (70-99) Test 03/09/19 04:15 03/09/19 07:29 White Blood Count 9.3 x10^3/uL (4.0-11.0) Red Blood Count 4.67 x10^6/uL (4.30-5.70) Hemoglobin 12.1 g/dL (13.0-17.5) Hematocrit 37.7 % (39.0-53.0) Mean Corpuscular Volume 81 fL (79-100) Mean Corpuscular Hemoglobin 26 pg (25-35) Mean Corpuscular Hemoglobin Concent 32 g/dL (31-37) Red Cell Distribution Width 15.4 % (11.5-14.5) Platelet Count 278 x10^3/uL (140-400) Neutrophils (%) (Auto) 58 % (31-73) Lymphocytes (%) (Auto) 30 % (24-48) Monocytes (%) (Auto) 8 % (0-9) Eosinophils (%) (Auto) 4 % (0-3) Basophils (%) (Auto) 1 % (0-3) Neutrophils # (Auto) 5.4 x10^3uL (1.8-7.7) Lymphocytes # (Auto) 2.8 x10^3/uL (1.0-4.8) Monocytes # (Auto) 0.7 x10^3/uL (0.0-1.1) Eosinophils # (Auto) 0.4 x10^3/uL (0.0-0.7) Basophils # (Auto) 0.1 x10^3/uL (0.0-0.2) Sodium Level 142 mmol/L (136-145) Potassium Level 3.7 mmol/L (3.5-5.1) Chloride Level 105 mmol/L (98-107) Carbon Dioxide Level 27 mmol/L (21-32) Anion Gap 10 (6-14) Blood Urea Nitrogen 12 mg/dL (8-26) Creatinine 0.6 mg/dL (0.7-1.3) Estimated GFR (Cockcroft-Gault) 131.0 Glucose Level 159 mg/dL (70-99) Calcium Level 8.9 mg/dL (8.5-10.1) Glucose (Fingerstick) 152 mg/dL (70-99) Brief hospital course Brief hospital course This 78-year-old male who has a history of uncontrolled diabetes mellitus and dementia, who was recently admitted to [facility] for acute cerebrovascular accident. At that time, he had a PEG tube placed, but after that he started eating. However, for last 2 days, the patient's daughter noted that he has become extremely weak and he cannot even support himself. He cannot sit up in the chair and has weakness of the lower extremities, so she brought him to the office yesterday. I noticed some cardiac arrhythmia on auscultation but EKG did not show any arrhythmia. Because of the change in mental status and also increasing weakness with possibility of another stroke and other issues, the patient was sent to the Emergency Room at [facility]. I had asked the family to go by ambulance, but he came by local transport. In the Emergency Room, The patient's labs showed WBC count of 9.5, hemoglobin 13.3. Sodium 139, potassium 3.7, BUN 9, creatinine 0.6, glucose 165. Urinalysis negative. CT scan of head showed no acute intracranial hemorrhage or mass, moderate chronic small vessel ischemic changes and atrophy and mild sinus disease. A chest x-ray was unremarkable. Urinalysis was negative except for small leukocyte esterase. Because of the change in mental status and increasing weakness, the patient was admitted for further evaluation and management. For more details regarding the past history, family history, social history, surgical history and other details, please refer to History and Physical. Consult Dr. Walker for Neurology evaluation and management, Dr. Zambrano for rehab evaluation and management. I will adjust the insulin. I ordered insulin earlier, but because the patient was n.p.o. I will hold it and then use sliding scale for today. For details, please refer to the orders. Prognosis of this patient is poor due to his multiple medical problems. CT scan of head and chest x-ray were unremarkable. During the stay in the hospital patient started eating better and became much more alert and stronger. He decided PT OT. It was decided that he was getting back to his baseline and he was okay to discharge home with home health services. Daughter wanted to resume PT OT and speech therapist visits. Discussed with PT and OT here in the hospital. Patient was seen by Dr. Walker for neurology evaluation and management and she ordered an EEG but the patient did not cooperate to get an EEG. Etiology of his acute metabolic encephalopathy remained unclear. It could be mi ld dehydration or viral infection or something unknown. Patient is stable for discharge but his long-term as well as short-term prognosis is poor due to his multiple medical problems. Medications Medications reviewed and reconciled for discharge. Allergy Allergies Coded Allergies Type Severity Reaction Last Updated Verified No Known Drug Allergies 05/03/16 No Follow up in 5 days. DISPOSITION: Home health services Comments Discharge Management - 35 minutes. For other details please refer to discharge instructions LUCY BRADSHAW MD March 09, 2019 11:22
--- NOTE | 2019-03-09 11:36 | NUR ---
SW following. Discussed with RN, pt needing home health upon discharge. SW spoke with pt's dtr, they would like [facility] as that is who they had in the past. SW awaiting confirmation of what is needed from home health agency before faxing referral. Transportation set up through [employer] (formerly [employer] (ph: [phone]) for [address]er to take pt home. RN notified. SW will continue to follow.
--- NOTE | 2019-03-09 14:59 | PDOC ---
PROGRESS NOTES Assessment Assessment Confusion. Metabolic encephalopathy. Generalized weakness. UTI. Dm. HTN. HLD. Obesity. Old BG hemorrhage? RECOMMENDATIONS/PLAN: ASA 81 mg daily. Continue Statin HS. Treat medical diseases. Discussed with his nice at bedside on 03/09/19. OT/PT. HISTORY OF THE PRESENT ILLNESS: This is a 78-year-old male patient who was brought to the ER of [facility] with report of increased weakness, confusion and just not doing well overall at home for over 2 days. Patient had a stroke the day before Thanksgiving this last year and daughter indicates that normally she is able to transfer patient from wheelchair to bed without difficulty but she states that now patient is requiring much more assistance. Patient does admit to feeling very weak in all extremities. PAST MEDICAL HISTORY: Diabetic neuropathy with hyperglycemia, last hemoglobin A1c was 7.9. Glaucoma, hypertension, internal hemorrhoids, hyperlipidemia, CVA, noncompliance, cerebrovascular disease. PAST SURGICAL HISTORY: PEG tube placed recently. SOCIAL HISTORY: Denied current smoking, alcoholism or drug abuse. The patient quit drinking in 1983. He lives with the family and has good support. FAMILY HISTORY: Brother has diabetes. Mother has diabetes. ALLERGY: NKDA MEDICATIONS: REVIEW OF SYSTEMS: Constitutional: Obese. Head: No traumatic brain or head injury. Skin: No edema, or rash. Ear: No infection, tinnitus. Eyes: No vision loss or color blindness. Nose: No bleeding or purulent discharges. Hearing: Hearing decrease. Neck: No injury. Cardiac: HTN, HLD. Pulmonary: No COPD. GI: No GI ulcer, GI bleeding. Urinary/genital: UTI. Endocrinologic: Diabetes Mellitus, obesity. Skeletomuscular: Generalized weakness. Neurological: see HP. Psychiatric: Denies drug use/abuse. Otherwise, not [id number] review of systems. PHYSICAL EXAMINATION: General appearance is in subacute distress. HEENT: Normocephalic and nontraumatic. Eyes, nose, ears, and throat are unremarkable. Neck is supple. No lymphadenopathy. No crepitus. Cardiovascular: S1, S2, regular rate and rhythm. Pulmonary: Clear to auscultation bilaterally. Abdomen: Bowel sounds are positive. Extremities: No rash, lesions, or edema. No restriction of range of motion NEUROLOGICAL EXAMINATION: Awake. Sitting in chair. Oriented partially to time, and knew place and person. PERRL. EOMI. CN: no focal findings. Muscle tone: within normal. Muscle strength: 5- DTR: 1-2 Plantar reflex: Neutral response bilaterally Gait: Able to walk with a walker. Sensory exam: no acute abnormal findings. No cerebellar signs elicited. F-T-N test fine. Objective Objective Vital Signs Date Time Temp Pulse Resp B/P (MAP) Pulse Ox O2 Delivery O2 Flow Rate FiO2 03/09/19 11:00 98.1 78 18 125/67 (86) 96 Room Air 98.1 Intake and Output 03/09/19 07:00 Intake Total 240 ml Balance 240 ml Intake Oral 240 ml # Voids 4 Vitals Signs Vitals VS - Last 72 Hours, by Label Date Time Temp Pulse Resp B/P (MAP) Pulse Ox O2 Delivery O2 Flow Rate FiO2 03/09/19 11:00 98.1 78 18 125/67 (86) 96 Room Air 98.1 03/09/19 08:00 Room Air 03/09/19 07:00 98.2 76 17 153/81 (105) 77 Room Air 98.2 03/09/19 03:30 97.7 75 16 140/78 (98) 95 Room Air 97.7 03/08/19 23:55 98.2 71 16 145/73 (97) 96 Room Air 98.2 03/08/19 19:48 98.1 75 18 115/63 (80) 95 Room Air 98.1 03/08/19 19:15 Room Air 03/08/19 18:24 71 148/84 03/08/19 14:57 97.1 71 18 148/84 (105) 95 Room Air 97.1 03/08/19 11:09 97.5 68 20 159/83 (108) 94 Room Air 97.5 03/08/19 08:00 Room Air 03/08/19 07:15 97.3 70 18 141/84 (103) 95 Room Air 97.3 Laboratory Laboratory Laboratory Tests Test 03/08/19 16:49 03/08/19 20:19 03/09/19 04:15 03/09/19 07:29 Glucose (Fingerstick) 131 mg/dL (70-99) 235 mg/dL (70-99) 152 mg/dL (70-99) White Blood Count 9.3 x10^3/uL (4.0-11.0) Red Blood Count 4.67 x10^6/uL (4.30-5.70) Hemoglobin 12.1 g/dL (13.0-17.5) Hematocrit 37.7 % (39.0-53.0) Mean Corpuscular Volume 81 fL (79-100) Mean Corpuscular Hemoglobin 26 pg (25-35) Mean Corpuscular Hemoglobin Concent 32 g/dL (31-37) Red Cell Distribution Width 15.4 % (11.5-14.5) Platelet Count 278 x10^3/uL (140-400) Neutrophils (%) (Auto) 58 % (31-73) Lymphocytes (%) (Auto) 30 % (24-48) Monocytes (%) (Auto) 8 % (0-9) Eosinophils (%) (Auto) 4 % (0-3) Basophils (%) (Auto) 1 % (0-3) Neutrophils # (Auto) 5.4 x10^3uL (1.8-7.7) Lymphocytes # (Auto) 2.8 x10^3/uL (1.0-4.8) Monocytes # (Auto) 0.7 x10^3/uL (0.0-1.1) Eosinophils # (Auto) 0.4 x10^3/uL (0.0-0.7) Basophils # (Auto) 0.1 x10^3/uL (0.0-0.2) Sodium Level 142 mmol/L (136-145) Potassium Level 3.7 mmol/L (3.5-5.1) Chloride Level 105 mmol/L (98-107) Carbon Dioxide Level 27 mmol/L (21-32) Anion Gap 10 (6-14) Blood Urea Nitrogen 12 mg/dL (8-26) Creatinine 0.6 mg/dL (0.7-1.3) Estimated GFR (Cockcroft-Gault) 131.0 Glucose Level 159 mg/dL (70-99) Calcium Level 8.9 mg/dL (8.5-10.1) Test 03/09/19 11:52 Glucose (Fingerstick) 175 mg/dL (70-99) Medication Medications Current Medications Aspirin (Children'S Aspirin) 81 mg [id number] PO Last administered on 03/09/19at 09:23; Start 03/08/19 at 15:00 Atorvastatin Calcium (Lipitor) 20 mg QHS PO Last administered on 03/08/19at 22:23; Start 03/08/19 at 21:00 Doxazosin Mesylate (Cardura) 4 mg DAILYWSUP PO Last administered on 03/08/19at 18:24; Start 03/08/19 at 17:00 Heparin Sodium (Porcine) (Heparin Sodium) 5,000 unit Q12HR SQ Last administered on 03/09/19at 09:33; Start 03/08/19 at 21:00 Insulin Human Lispro (HumaLOG) 0-8 UNITS BIDBFRMEAL SQ Last administered on 03/09/19at 09:34; Start 03/08/19 at 16:30 Comment Review of Relevant I have reviewed the following items cory (where applicable) has been applied. HEAVEN QUINTANA MD March 09, 2019 14:59
[2019-03-09 15:00] VITALS: BP 168/72
--- NOTE | 2019-03-09 16:30 | NUR ---
Discharge Note: [facility]AN[facility] Discharge instructions and discharge home medications reviewed with Patient and a copy given. All questions have been answered and understanding verbalized. The following instructions and handouts were given: follow up instructions. Discontinued lines and drains: 20 gauge right ac, tip intact. patient tolerated well. Patient discharged to home with home health via family and transportation.
== END 2019-03-09 17:00 | disposition home health service (06) | DRG 640 ==
LOC: ER 17:35 → 6 SOUTH 20:24
PROVIDERS: ADMIT Internal Medicine; ATTEND Internal Medicine
DX: E86.0 Dehydration (principal); G93.41 Metabolic encephalopathy; N39.0 Urinary tract infection, site not specified; F03.91 Unspecified dementia, unspecified severity, with behavioral disturbance; B34.9 Viral infection, unspecified; E11.40 Type 2 diabetes mellitus with diabetic neuropathy, unspecified; E11.42 Type 2 diabetes mellitus with diabetic polyneuropathy; E11.65 Type 2 diabetes mellitus with hyperglycemia; E66.9 Obesity, unspecified; E78.00 Pure hypercholesterolemia, unspecified; E78.5 Hyperlipidemia, unspecified; I10 Essential (primary) hypertension; Z79.82 Long term (current) use of aspirin; Z83.3 Family history of diabetes mellitus; Z86.73 Personal history of transient ischemic attack (TIA), and cerebral infarction without residual deficits; Z91.19 Patient's noncompliance with other medical treatment and regimen; Z68.30 Body mass index [BMI] 30.0-30.9, adult
CPT/HCPCS: 36415; 70450; 71045; 80048; 80053; 81001; 82962; 83690; 83735; 84443; 84484; 85025; 87086; 93005; 96360; 96361; J1644; J1815; J7030; 92610; 97535; 99285-25